=== PATIENT | female | born 1985 | race Caucasian/White ===

== ENCOUNTER 2019-11-09 11:30 | Day surgery (SDC) | payer OTHER ==
[~2019-11-09 11:30] MED LIST: Buffered Lidocaine 1% SYRIN* 1 ML/SYRINGE INTRADERM ONE; Lactated Ringers 1000 ML Bag* 1,000 ML IV SCH
[2019-11-09] MEDS ORDERED: fentaNYL* 50 MCG/ML 2 ML VIAL (100 MCG VIAL) ONE ×3 (13:30→16:05)
[2019-11-09] MEDS ORDERED: Lidocaine 2% PF * 5 ML VIAL ONE (13:31)
[2019-11-09] MEDS ORDERED: Rocuronium* 10 MG/ML VIAL ONE (13:31)
[2019-11-09] MEDS ORDERED: Propofol* 10 MG/ML 20 ML BTL ONE (13:31)
[2019-11-09] MEDS ORDERED: Midazolam* 1 MG/ML 2 ML VIAL (2 MG) ONE (13:31)
[2019-11-09] MEDS ORDERED: Bupivacaine 0.25% EPI 200,000* 30 ML SDV ONE (14:07)
[2019-11-09] MEDS ORDERED: Dexamethasone IV* 4 MG/ML 1 ML (4 MG) ONE (15:26)
[2019-11-09] MEDS ORDERED: Ondansetron INJ* 2 MG/ML VIAL ONE (15:26)
[2019-11-09] MEDS ORDERED: Neostigmine Methylsulfate* 1 MG/ML 10 ML VIAL (1 mg/ml) ONE (15:28)
[2019-11-09] MEDS ORDERED: Glycopyrrolate IV* 0.2 MG/ML 1 ML VIAL ONE (15:28)
[2019-11-09] MEDS ORDERED: Acetaminophen IV 1GM/100ML * 1,000 MG/100 ML VIAL IVPB ONE (16:03)
[2019-11-09] MEDS ORDERED: Naloxone* 0.4 MG/ML 1 ML VIAL IV PRN (16:03)
[2019-11-09] MEDS ORDERED: Ketorolac INJ* 30 MG/ML 1 ML VIAL IV PRN (16:03)
[2019-11-09] MEDS ORDERED: DiMENhydriNATE IV* 50 MG/ML VIAL IV PUSH PRN (16:03)
[2019-11-09] MEDS ORDERED: Acetaminophen IV 1GM/100ML * 100 ML ONE (16:05)
[2019-11-09] MEDS: fentaNYL* 50 MCG/ML 2 ML VIAL (100 MCG VIAL) IV PRN ×2 (16:06→16:54)
[2019-11-09 17:25] VITALS: BP 114/68
--- NOTE | 2019-11-09 23:03 | OP ---
DATE OF OPERATION: 11/09/19 - [facility] DATE OF : 81 SURGEON: Shay Norman DO HYPERION ADMINISTRATOR: Brad Carbajal MD ANESTHESIA: General endotracheal. PRE-OP DIAGNOSIS: Left ovarian cyst, suspected endometrioma. POST-OP DIAGNOSIS: Left ovarian cyst, suspected endometrioma. OPERATIVE PROCEDURE: Laparoscopic left ovarian cystectomy. ESTIMATED BLOOD LOSS: 20 mL. IV FLUIDS: 1600 mL. URINE OUTPUT: 300 mL clear urine. SPECIMENS: Included left ovarian cyst wall. CONDITION: Stable to recovery room. COMPLICATIONS: None. FINDINGS: Exam under anesthesia revealed a normal sized retroverted uterus and left adnexal mass. Laparoscopy exhibited a large bilobed simple appearing cyst consistent with endometrioma filled with chocolate fluid. The uterus, right fallopian tube, left fallopian tube and both ovaries appeared otherwise normal. The appendix, gallbladder and liver were visualized and appeared normal. INDICATIONS AND CONSENT: A 34-year-old [id number] with left ovarian cyst, consented for exploratory laparotomy, left ovarian cystectomy, possible salpingectomy, possible oophorectomy, all indicated procedures. The risks, benefits, and alternatives of this laparoscopic surgery were reviewed with the patient, she understood the risks included, but are not limited to possible injury to bowel, bladder, ureters, future infertility, possible . Laparoscopy would be converted to laparotomy during surgery if needed. The patient agreed to the procedure and signed the consent form. DESCRIPTION OF PROCEDURE: She was taken to the OR with IV fluids running and pneumatic compression stockings applied to the lower extremities. General anesthesia was obtained without difficulty. The patient was placed in the dorsal lithotomy position with yellow thin stirrups with the knee bent at 30 degree angles. Examination under anesthesia revealed the findings as described above. The patient was prepped and draped. A Mitchell catheter was inserted and the bladder was emptied. Speculum was placed in the vagina. The anterior lip of the cervix was grasped with a single- tooth tenaculum and a Alvarado uterine manipulator was introduced. Attention was then turned to the abdomen. A vertical skin incision was made across the umbilical folds. The fascia was grasped with 2-0 Cha clamps and cut. The peritoneum was opened with scissors and a 10 mm balloon trocar was inserted into the abdomen. The balloon was inflated and the trocar was locked in place. Intraabdominal placement was confirmed with the laparoscope. Pneumoperitoneum was established with CO2 gas to the pressure of 15 mmHg. Intraabdominal survey revealed the findings as outlined above. The liver, gallbladder appeared normal. Two additional 5 mm trocars were inserted into the right and left bilateral lower quadrants, 8 cm from the midline under direct laparoscopic visualization. Trendelenburg position was obtained to facilitate pelvic organ exposure. The left ovary exhibited a large left ovarian cyst consistent with endometrioma. The right and left fallopian tubes and the right ovary appeared normal. The uterus appeared otherwise normal. The left ovarian cyst was punctured with the L-hook on the LigaSure device and the suction irrigation was immediately introduced to the cyst. The cyst was drained with the suction irrigation. The cyst was then resected off of the ovary using the LigaSure device for cautery and resection. The left ovarian cyst was resected completely in 2 separate segments off the left ovary using the LigaSure device. The abdomen and surgical site was then irrigated thoroughly. Excellent hemostasis was noted at the site of the cyst resection. A patch of Interceed was placed over where the cyst wall was resected to help prevent adhesive disease. The cyst wall was removed using the EndoCatch device which was introduced through the 10 mm port. The specimen was placed in the bag and retrieved from the umbilical incision. The abdomen and pelvis was again thoroughly inspected. Good hemostasis was noted at the resection site. All instruments were removed from the abdomen and vagina. The pneumoperitoneum was released and correct instrument counts were confirmed. The umbilical fascia was closed with 2-0 Vicryl suture and the skin of the umbilical site was closed with 4- 0 Monocryl sutures. The two 5 mm ports were closed with Dermaflex glue. The patient was taken to the recovery room in a stable condition. The patient will be discharged from the PACU after all criteria are met. She was given instructions regarding followup visit in 1 week for incision check. Prescriptions were sent directly to her pharmacy. I was present for the entire procedure. Jimmie Norman DO OBGYN [id number]/CPS #: [id number] MTDD
== END 2019-11-09 18:10 | disposition home or self-care (01) ==
LOC: OR 11:30
PROVIDERS: ATTEND Obstetrics & Gynecology
PROC: 0UB14ZZ Excision of Left Ovary, Percutaneous Endoscopic Approach (ICD-10-PCS; principal; 2019-11-09 13:15)
DX: N80.1 Endometriosis of ovary (principal); K22.70 Barrett's esophagus without dysplasia; K21.9 Gastro-esophageal reflux disease without esophagitis
CPT/HCPCS: 88305; J1100; J2250; J2405; J2704; J2710; J3010

== ENCOUNTER 2020-11-17 13:37 | Inpatient (IN) ==
[2020-11-17 14:22] LABS: Urine Appearance Cloudy; Urine Bilirubin Negative (Negative); Urine Blood Negative (Negative); Urine Color Amber; Urine Glucose Negative (Negative); Urine Ketones 1+ (Negative); Urine Nitrite Negative (Negative); Urine Protein 2+(100 mg/dL) (Negative); Urine Specific Gravity 1.021 (1.010-1.030); Urine Urobilinogen Negative (Negative)
[2020-11-17 14:27] LABS: Urine Bacteria Absent (Absent); Urine Red Blood Cell 3+(>10/hpf) (Absent); Urine Squamous Epithelial Cell Present (Absent); Urine White Blood Cell Trace(0-5/hpf) (Absent)
[2020-11-17 15:21] LABS: Hematocrit 36 % (35-47); Hemoglobin 12.3 g/dL (12.0-16.0); Mean Corpuscular HGB Conc 34 g/dL (31-36); Mean Corpuscular Hemoglobin 29 pg (27-31); Mean Corpuscular Volume 86 fL (80-97); Mean Platelet Volume 7.6 fL (7.4-10.4); Platelet Count 244 10^3/uL (150-450); Red Blood Count 4.21 10^6 /uL (3.70-4.87); Red Cell Distribution Width 15 % (10-15); White Blood Count 18.2 10^3/uL (3.5-10.8)
[2020-11-17] MEDS ORDERED: fentaNYL 100 mcg/2 ml 50 MCG/ML VIAL ONE (16:08)
[2020-11-17] MEDS ORDERED: OBEPIDURAL 250 ML EPIDURAL ONE (16:09)
[2020-11-17] MEDS ORDERED: Lactated Ringers 1000 ml BAG 1,000 ML IV ONE ×2 (16:17→17:03)
[2020-11-17] MEDS ORDERED: Buffered Lidocaine 1% SYRIN 1 ml INTRADERM ONE (16:17)
[2020-11-17] MEDS ORDERED: Lactated Ringers 1000 ml BAG 1,000 ML IV SCH ×3 (17:00→18:00)
[2020-11-17] MEDS ORDERED: Phenylephrine 40 mcg/mL 10mL (400mcg) SYRINGE IV PUSH PRN ×2 (17:03)
[2020-11-17] MEDS ORDERED: Sodium Citrate/Citric Acid LIQ 15 ML UDC PO PRN (17:03)
[2020-11-17] MEDS ORDERED: Lactated Ringers 1000 ml BAG 500 ML IV PRN ×2 (17:03)
[2020-11-17 17:30] LABS: ABS Basophils 0.1 10^3/ul (0-0.2); ABS Monocytes 0.6 10^3/ul (0-0.8); ABS Neutrophils 16.4 10^3/ul (1.5-7.7); Hematocrit 37 % (35-47); Hemoglobin 12.2 g/dL (12.0-16.0); Lymphocyte % 5.3 %; Mean Corpuscular HGB Conc 33 g/dL (31-36); Mean Corpuscular Hemoglobin 29 pg (27-31); Mean Corpuscular Volume 86 fL (80-97); Mean Platelet Volume 8.1 fL (7.4-10.4); Platelet Count 246 10^3/uL (150-450); Red Blood Count 4.26 10^6 /uL (3.70-4.87); Red Cell Distribution Width 14 % (10-15); White Blood Count 18.1 10^3/uL (3.5-10.8)
[2020-11-17] MEDS ORDERED: OBEPIDURAL 250 ML EPIDURAL SCH (18:00)
[2020-11-17] MEDS ORDERED: Oxytocin in LR 20 UNITS/1,000 ML BAG IVPB SCH (20:00)
[2020-11-18] MEDS ORDERED: Witch Hazel PAD JAR TOPICAL PRN (01:04)
[2020-11-18] MEDS ORDERED: Dibucaine 1% OINT 28.35 GM TUBE PR PRN (01:04)
[2020-11-18] MEDS ORDERED: Lactated Ringers 1000 ml BAG 1,000 ML IV SCH (02:00)
[2020-11-18 02:06] LABS: Urine Benzodiazepine Screen None Detected (None Detect); Urine Cannabinoids Screen None Detected (None Detect); Urine Opiates Screen None Detected (None Detect)
[2020-11-19 05:42] LABS: ABS Eosinophils 0.2 10^3/ul (0-0.6); ABS Lymphocytes 2.5 10^3/ul (1.0-4.8); ABS Monocytes 1.1 10^3/ul (0-0.8); ABS Neutrophils 10.5 10^3/ul (1.5-7.7); Eosinophil % 1.5 %; Hematocrit 32 % (35-47); Hemoglobin 10.6 g/dL (12.0-16.0); Lymphocyte % 17.2 %; Mean Corpuscular HGB Conc 34 g/dL (31-36); Mean Corpuscular Hemoglobin 29 pg (27-31); Mean Corpuscular Volume 86 fL (80-97); Mean Platelet Volume 7.1 fL (7.4-10.4); Platelet Count 238 10^3/uL (150-450); Red Blood Count 3.67 10^6 /uL (3.70-4.87); Red Cell Distribution Width 15 % (10-15); White Blood Count 14.3 10^3/uL (3.5-10.8)
[2020-11-20 07:51] VITALS: BP 120/73
== END 2020-11-20 13:36 | disposition home or self-care (01) | DRG 807 ==
LOC: MCHOBOUT 13:37 → MCHOB 14:49
PROVIDERS: ADMIT Obstetrics & Gynecology; ATTEND Obstetrics & Gynecology